=== PATIENT | male | born 1995 | race Caucasian/White ===

== ENCOUNTER 2016-10-16 20:01 | Emergency (ER) | payer OTHER ==
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
[2016-10-16 22:14] VITALS: BP 138/78
== END 2016-10-16 22:16 | disposition home or self-care (01) ==
LOC: ER 20:01
DX: S02.2XXA Fracture of nasal bones, initial encounter for closed fracture (principal); W50.0XXA Accidental hit or strike by another person, initial encounter; Y92.149 Unspecified place in prison as the place of occurrence of the external cause